=== PATIENT | male | born 1955 ===

== ENCOUNTER 2021-11-04 17:29 | Emergency (ER) | payer MEDICARE, BC ==
[2021-11-04] MEDS ORDERED: Sodium Chloride 0.9% 10 ML Syringe FLUSH PRN (17:39)
[2021-11-04] MEDS ORDERED: Iopamidol 755 Mg/ML 100 ML Bottle IVPUSH ONE (17:43)
[2021-11-04] MEDS ORDERED: Heparin Sodium 5,000 Units/ML Vial IVPUSH ONE (19:16)
[2021-11-04] MEDS ORDERED: Heparin Sodium/0.45% NaCl 500 ML IV SCH (19:30)
== END 2021-11-04 20:25 ==
LOC: LL.ED 17:29 → SUPCPDRO 17:29 → LL.ED 20:25
DX: I26.99 Other pulmonary embolism without acute cor pulmonale (principal); U09.9 Post COVID-19 condition, unspecified; E03.9 Hypothyroidism, unspecified; Z86.73 Personal history of transient ischemic attack (TIA), and cerebral infarction without residual deficits; Z79.899 Other long term (current) drug therapy; Z20.822 Contact with and (suspected) exposure to COVID-19
CPT/HCPCS: 36415; 71275; 80053; 83735; 84443; 84484; 85025; 85379; 93005; 93010; 96365; 99284; 99285-25; J1644; Q9967; U0002